=== PATIENT | male | born 1960 | race Caucasian/White ===

== ENCOUNTER 2017-09-10 21:13 | Inpatient (IN) | payer OTHER ==
[~2017-09-10] VITALS: Ht 170.2 cm; Wt 75.1 kg
[2017-09-10 22:25] VITALS: BP 134/93; PULSE 69; RESP 18; TEMP 98; O2SAT 98
[2017-09-10] MEDS ORDERED: LORazepam 1 MG TAB PO PRN (23:15)
[2017-09-10] MEDS ORDERED: LORazepam 2 MG TAB PO PRN (23:15)
[2017-09-10] MEDS ORDERED: FLUMAZENIL 0.5 MG/5 ML VIAL IV PUSH PRN (23:15)
[2017-09-10] MEDS ORDERED: LORazepam 2 MG/ML VIAL IV PUSH PRN ×4 (23:15)
[2017-09-11 06:18] VITALS: BP 135/78; PULSE 68; RESP 18; TEMP 97.4; O2SAT 96
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
== END 2017-09-11 17:15 | disposition home or self-care (01) | DRG 882 ==
LOC: H270 22:15
PROVIDERS: ADMIT Psychiatry & Neurology Psychiatry; ATTEND Psychiatry & Neurology Psychiatry
DX: F43.25 Adjustment disorder with mixed disturbance of emotions and conduct (principal); F10.20 Alcohol dependence, uncomplicated; F19.10 Other psychoactive substance abuse, uncomplicated; F17.210 Nicotine dependence, cigarettes, uncomplicated; Z59.0 Homelessness; Z63.8 Other specified problems related to primary support group

== ENCOUNTER 2017-09-15 19:38 | Emergency (ER) | payer SELFPAY ==
[~2017-09-15] VITALS: Ht 170.2 cm; Wt 80.0 kg
[2017-09-15 19:44] VITALS: BP 110/68; PULSE 95; RESP 18; TEMP 98.6; O2SAT 93
[2017-09-15] MEDS ORDERED: ceFAZolin 2 GM PREMIX 100 ML IV ONE (20:00)
[2017-09-15] MEDS ORDERED: DIPHTH/TETANUS/ACEL PERTUSSIS (BOOSTER) 0.5 ML VIAL/PFS IM ONE (20:00)
--- NOTE | 2017-09-15 20:04 | PD ---
HPI Chief Complaint: Fall Time Seen by Provider: 19:45 Travel History International Travel<30 days: No Contact w/Intl Traveler<30days: No Traveled to known affect area: No History of Present Illness HPI The patient is a 57 year old male who presents to the [facility] emergency department with a history of being found on the ground by bystanders with a decreased level of consciousness. The patient reportedly had a loss of consciousness related to hitting his head. The patient had an abrasion to the right side of his forehead. The patient on arrival is awake and alert. The patient has an odor of alcohol about him with some slurred speech. He reports that he normally drinks a case of beer today. So far he has had 2 beers. He is unsure how he ended up on the ground. The patient at this time reports having a headache, neck pain, back pain. The patient has a history of neuropathy and has chronic tingling sensations in his legs. He denies having any new weakness of his upper or lower extremities. He denies having any new tingling of his extremities. He denies having any chest pain, or chest pressure. He reports having some chronic dyspnea on exertion that is no worse than usual. He reports that he smokes 2 packs of cigarettes per day. He cannot recall when his tetanus was last updated. On review of systems otherwise , the patient denies having any known recent fevers, worsening cough or congestion, abdominal pain, vomiting, diarrhea, urinary symptoms, or other neurologic symptoms. [facility] Past Medical History Narrative Medical The patient's past medical history is significant for asthma/COPD, history of polysubstance abuse, history of daily alcohol abuse, tobacco abuse, history of coronary artery disease status post coronary artery bypass grafting, hypertension, seizure disorder, prior history of cerebrovascular accident. Arthritis: No Asthma: No Heart Rhythm Problems: No Cardiovascular Problems: No (denies) High Cholesterol: No Chest Pain: No Congestive Heart Failure: No COPD: Yes Cerebrovascular Accident: Yes Coronary Artery Disease: Yes Diminished Hearing: No Genitourinary: No Hypertension: Yes Musculoskeletal: Yes (neuropathy) Neurologic: No Psychiatric: No Reproductive: No Respiratory: Yes Seizures: Yes (last one was 1 month ago after drinking) Tetanus Vaccination: Unknown Past Surgical History Narrative Surgical The patient's past surgical history is significant for coronary artery bypass grafting of 2 vessels Abdominal Surgery: No Cardiac Surgery: No Coronary Artery Bypass Graft: Yes Ear Surgery: No Endocrine Surgery: No Eye Surgery: No Genitourinary Surgery: No Gynecologic Surgery: No Oral Surgery: No Thoracic Surgery: No Other Surgery: Yes (Rt hand, thumb reattached, Lf forearm josafat) Social History Alcohol Use: Yes (2 beers today, normally a case of beer daily) Tobacco Use: Yes (2 packs per day) Substance Use: No (denies) Allergies-Medications (Allergen,Severity, Reaction): Coded Allergies: No Known Allergies (Unverified , 09/15/17) Reported Meds & Prescriptions Reported Meds & Active Scripts Active No Active Prescriptions or Reported Medications Review of Systems Except as stated in HPI: all other systems reviewed are Neg General / Constitutional: No: Fever Eyes: No: Visual changes HENT: Positive: Headaches, Neck Pain, No: Neck Stiffness Cardiovascular: Positive: Dyspnea on exertion (Chronic dyspnea on exertion related to COPD), No: Chest Pain or Discomfort Respiratory: Positive: Cough (Chronic smoker's cough), No: Shortness of Breath Gastrointestinal: No: Nausea, Vomiting, Diarrhea, Abdominal Pain Genitourinary: No: Dysuria Musculoskeletal: No: Pain Skin: No Rash Neurologic: Positive: Headache, No: Weakness, Focal Abnormalities, Change in Mentation, Sensory Disturbance Psychiatric: No: Depression Endocrine: No: Polydipsia Hematologic/Lymphatic: No: Easy Bruising Physical Exam Narrative General: The patient is a well-developed well-nourished male, disheveled appearing on arrival, cervical collar in place. Head and Neck exam: Head is normocephalic, with evidence of trauma to the head, superficial abrasion with underlying small hematoma to the right side of the forehead just above the right eyebrow. No facial bone tenderness on palpation. No increased mobility to the facial bones with palpation. No crepitus or step-off. Eyes: EOMI, pupils are equal round and reactive to light. Nose: Midline septum with pink mucous membranes Mouth: Dentition unremarkable. Moist mucus membranes. Posterior oropharynx is not erythematous. No tonsillar hypertrophy. Uvula midline. Airway patent. Neck: The patient's trachea is midline. The patient has a cervical collar in place. Cardiovascular: Regular rate and rhythm without murmurs, gallops, or rubs. No pulse deficit to the extremities on simultaneous auscultation and palpation of his radial artery. Lungs: Clear to auscultation bilaterally. No wheezes, rhonchi, or rales. Abdomen: Soft, without tenderness to palpation in all 4 quadrants of the abdomen. No guarding, rebound, or rigidity. Normal bowel sounds are audible. No tenderness on palpation of McBurney's point. Negative Coe sign. Extremities: No clubbing, cyanosis, or edema. 2+ pulses in all 4 extremities. No calf tenderness on palpation. The patient has full range of motion of all extremities without any crepitus or pain with range of motion. The patient has no shortening of his extremities. The patient has no pain with internal or external rotation of his shoulders or hips. Back: No spinous process tenderness to palpation. No step-off or crepitus. No erythema or ecchymosis. No costovertebral angle tenderness to palpation. Neurologic Exam: Cranial nerves 2-12 were intact on exam. Strength is 5/5 in all 4 extremities. No sensory deficits noted. Skin Exam: No rash noted. Intact skin that is warm and dry. Data Data Last Documented VS Vital Signs Date Time Temp Pulse Resp B/P (MAP) Pulse Ox O2 Delivery O2 Flow Rate FiO2 09/15/17 19:49 94 Room Air 09/15/17 19:44 98.6 95 18 110/68 (82) Orders Orders Electrocardiogram (09/15/17 19:53) Complete Blood Count With Diff (09/15/17 19:53) Comprehensive Metabolic Panel (09/15/17 19:53) Creatine Kinase (Cpk) (09/15/17 19:53) Ckmb (Isoenzyme) Profile (09/15/17 19:53) Troponin I (09/15/17 19:53) B-Type Natriuretic Peptide (09/15/17 19:53) Prothrombin Time / Inr (Pt) (09/15/17 19:53) Act Partial Throm Time (Ptt) (09/15/17 19:53) Lipase (09/15/17 19:53) Urinalysis - C+S If Indicated (09/15/17 19:53) Magnesium (Mg) (09/15/17 19:53) Chest, Single Ap (09/15/17 19:53) Ct Brain W/O Iv Contrast(Rout) (09/15/17 19:53) Iv Access Insert/Monitor (09/15/17 19:53) Ecg Monitoring (09/15/17 19:53) Oximetry (09/15/17 19:53) Drug Screen, Random Urine (09/15/17 19:53) Alcohol (Ethanol) (09/15/17 19:53) Ct Cerv Spine W/O Contrast (09/15/17 ) Pelvis, Ap Only (Routine) (09/15/17 19:53) Cefazolin 2 Gm Premix (Ancef 2 Gm Premix (09/15/17 20:00) Vxjf-Brh-Pxacjq (Booster) Inj (Boostrix (09/15/17 20:00) Ct Thor Spine W/O Contrast (09/15/17 19:53) Ct Lumb Spine W/O Contrast (09/15/17 19:53) Sodium Chlor 0.9% 1000 Ml Inj (Ns 1000 M (09/15/17 21:00) Splint Or Brace Apply/Monitor (09/15/17 21:18) Clavicle (09/15/17 22:05) Labs Laboratory Tests Test 09/15/17 20:20 White Blood Count 8.9 TH/MM3 Red Blood Count 4.40 MIL/MM3 Hemoglobin 15.1 GM/DL Hematocrit 43.7 % Mean Corpuscular Volume 99.2 FL Mean Corpuscular Hemoglobin 34.2 PG Mean Corpuscular Hemoglobin Concent 34.5 % Red Cell Distribution Width 14.0 % Platelet Count 240 TH/MM3 Mean Platelet Volume 8.6 FL Neutrophils (%) (Auto) 60.1 % Lymphocytes (%) (Auto) 27.0 % Monocytes (%) (Auto) 10.5 % Eosinophils (%) (Auto) 1.9 % Basophils (%) (Auto) 0.5 % Neutrophils # (Auto) 5.4 TH/MM3 Lymphocytes # (Auto) 2.4 TH/MM3 Monocytes # (Auto) 0.9 TH/MM3 Eosinophils # (Auto) 0.2 TH/MM3 Basophils # (Auto) 0.0 TH/MM3 CBC Comment DIFF FINAL Differential Comment Prothrombin Time 9.7 SEC Prothromb Time International Ratio 1.0 RATIO Activated Partial Thromboplast Time 24.7 SEC Blood Urea Nitrogen 7 MG/DL Creatinine 0.77 MG/DL Random Glucose 108 MG/DL Total Protein 7.2 GM/DL Albumin 2.9 GM/DL Calcium Level 8.7 MG/DL Magnesium Level 2.4 MG/DL Alkaline Phosphatase 115 U/L Aspartate Amino Transf (AST/SGOT) 99 U/L Alanine Aminotransferase (ALT/SGPT) 186 U/L Total Bilirubin 0.4 MG/DL Sodium Level 143 MEQ/L Potassium Level 3.7 MEQ/L Chloride Level 111 MEQ/L Carbon Dioxide Level 19.1 MEQ/L Anion Gap 13 MEQ/L Estimat Glomerular Filtration Rate 104 ML/MIN Total Creatine Kinase 35 U/L Troponin I LESS THAN 0.02 NG/ML B-Type Natriuretic Peptide 26 PG/ML Lipase 284 U/L Ethyl Alcohol Level 244 MG/DL MDM Medical Decision Making Medical Screen Exam Complete: Yes Emergency Medical Condition: Yes Medical Record Reviewed: Yes Differential Diagnosis Intracranial trauma, versus cervical spine trauma, versus syncopal event, versus cardiac arrhythmia, versus seizure activity, versus alcohol intoxication Narrative Course During the course of the patient's emergency department visit, the patient's history, examination, and differential diagnosis were reviewed with the patient. The patient was placed on a pvc monitor with oximetry and frequent blood pressure monitoring. The patient had IV access obtained and blood work sent for analysis. The patient had an EKG done on arrival that shows a sinus rhythm heart rate of [address] segment elevation is noted. The patient was initially provided Ancef 2 g IV, and update to his tetanus, normal saline IV fluids The patient's laboratory studies were reviewed and remarkable for a white count of 8.9, hemoglobin 15.1, platelets 240, monocytes 10.5, CMP is remarkable for chloride 111, CO2 19.1, glucose 108, AST 99, ALT 180, cardiac enzymes within normal limits, lipase 284, PT 9.7, PTT 24.7, alcohol level is 244 Radiology studies were reviewed and remarkable for Last Impressions Clavicle X-Ray 09/15/172204 Signed Impressions: CONCLUSION: Remote-appearing clavicular fracture. Thoracic Spine CT 09/15/171952 Signed Impressions: CONCLUSION: 1. Degenerative changes of the spine are noted without evidence for acute frac ture or listhesis. 2. Remote right mid clavicular fracture. Pelvis X-Ray 09/15/171952 Signed Impressions: CONCLUSION: No acute findings. Lumbar Spine CT 09/15/171952 Signed Impressions: CONCLUSION: 1. Degenerative changes are noted. No fracture or listhesis. Head CT 09/15/171952 Signed Impressions: CONCLUSION: 1. Atrophy. Chest X-Ray 09/15/171952 Signed Impressions: CONCLUSION: Clear lungs. Right clavicular fracture, age indeterminate however concerning fo r acute fracture. Cervical Spine CT 09/15/17 0000 Signed Impressions: CONCLUSION: 1. Degenerative changes are noted without evidence for acute fracture or listh esis. The patient cervical collar will be removed. The patient will be observed in the emergency department for improvement in his mentation and ability to walk without assistance given his acute alcohol intoxication. Initially the patient was placed in a sling regarding a possible new clavicle fracture, however this appeared to be an old clavicle fracture on additional imaging. The patient is encouraged to decrease his alcohol intake. The patient is resting comfortably and feels better, is alert and in no distress. The patient's results and examination findings were discussed with the patient. The repeat examination is unremarkable and benign. The history, exam, diagnostic testing, and current condition do not suggest any significant pathology to warrant further testing, continued ED treatment, admission, or surgical evaluation at this point. The vital signs have been stable. The patient does not have uncontrollable pain, intractable vomiting, or other significant symptoms. The patient's condition is stable and appropriate for discharge. The patient will pursue further outpatient evaluation with a primary care physician or other designated or consulting physician as indicated in the discharge instructions. The patient is instructed to report back to the emergency department immediately for reexamination in the mean time if he develops any new or worsening signs or symptoms. The patient expressed understanding and was agreeable with this plan. Diagnosis Primary Impression: Head injury Qualified Codes: S09.90XA - Unspecified injury of head, initial encounter Additional Impressions: Abrasion Alcohol intoxication Qualified Codes: F10.929 - Alcohol use, unspecified with intoxication, unspecified Referrals: [facility] 2 days Primary Care Physician 2 days Patient Instructions: Abrasion (ED), General Instructions, Head Injury (ED) Additional Instructions: The patient is instructed to ice any areas of swelling or discomfort. The patient is not encouraged to decrease his alcohol intake. Med/Other Pt SpecificInfo: No Change to Meds Scripts No Active Prescriptions or Reported Meds Disposition: 01 DISCHARGE HOME Condition: Stable Margot Lion MD Sep 15, 2017 20:04
--- NOTE | 2017-09-15 20:25 | RADRPT ---
EXAM DATE: 09/15/2017 8:23 PM EDT AGE/SEX: 57 years / Male INDICATIONS: Fall. Pelvic pain. CLINICAL DATA: This is the patient's initial encounter. Patient reports that signs and symptoms have been present for 1 day and indicates a pain score of 5/10. MEDICAL/SURGICAL HISTORY: None. None. COMPARISON: No prior [place] exams available for comparison. FINDINGS: Examination of the pelvis demonstrates no evidence of fracture or dislocation. Bony mineralization i s normal. There is no widening of the sacroiliac joints. No foreign body is identified. CONCLUSION: No acute findings. Electronically signed by: Stanley Venegas MD 09/15/2017 8:24 PM EDT
--- NOTE | 2017-09-15 20:25 | RADRPT ---
EXAM DATE: 09/15/2017 8:21 PM EDT AGE/SEX: 57 years / Male INDICATIONS: Fall. Right side chest pain. CLINICAL DATA: This is the patient's initial encounter. Patient reports that signs and symptoms have been present for 1 day and indicates a pain score of 4/10. MEDICAL/SURGICAL HISTORY: None. None. COMPARISON: No prior [facility] exams available for comparison. FINDINGS: The lungs are clear. There is a deformity of the right distal clavicle suspect for an acute fracture however evaluated on this study. This is secondary to overlying artifact. Heart size normal. CONCLUSION: Clear lungs. Right clavicular fracture, age indeterminate however concerning for acute fracture. Electronically signed by: Stanley Venegas MD 09/15/2017 8:24 PM EDT
[2017-09-15 20:28] LABS: AUTOMATED NEUTROPHIL # 5.4 TH/MM3 (1.8-7.7); BASOPHIL % 0.5 % (0.0-2.0); EOSINOPHIL # 0.2 TH/MM3 (0-0.4); EOSINOPHIL % 1.9 % (0.0-4.0); HEMATOCRIT 43.7 % (39.0-51.0); HEMOGLOBIN 15.1 GM/DL (13.0-17.0); LYMPHOCYTE # 2.4 TH/MM3 (1.0-4.8); MEAN CELL VOLUME 99.2 FL (80.0-100.0); MEAN CORPUSCULAR HEMOGLOBIN 34.2 PG (27.0-34.0); MEAN CORPUSCULAR HGB CONC 34.5 % (32.0-36.0); MEAN PLATELET VOLUME 8.6 FL (7.0-11.0); MONO % 10.5 % (0.0-8.0); MONOCYTE # 0.9 TH/MM3 (0-0.9); NEUT % 60.1 % (16.0-70.0); PLATELET COUNT 240 TH/MM3 (150-450); WHITE BLOOD COUNT 8.9 TH/MM3 (4.0-11.0)
[2017-09-15 20:40] LABS: ALBUMIN 2.9 GM/DL (3.4-5.0); AST (GOT) 99 U/L (15-37); BICARBONATE 19.1 MEQ/L (21.0-32.0); BLOOD UREA NITROGEN 7 MG/DL (7-18); CALCIUM 8.7 MG/DL (8.5-10.1); CHLORIDE 111 MEQ/L (98-107); CREATININE 0.77 MG/DL (0.60-1.30); GLOMERULAR FILTRATION RATE 104 ML/MIN (>89); GLUCOSE,RANDOM 108 MG/DL (74-106); MAGNESIUM 2.4 MG/DL (1.5-2.5); SODIUM (NA) 143 MEQ/L (136-145)
[2017-09-15 20:41] LABS: ALT (GPT) 186 U/L (12-78)
[2017-09-15 20:42] LABS: PROTHROMBIN TIME - PATIENT 9.7 SEC (9.8-11.6)
[2017-09-15 20:44] LABS: ALKALINE PHOSPHATASE 115 U/L (45-117); TOTAL BILIRUBIN ADULT 0.4 MG/DL (0.2-1.0); TOTAL PROTEIN 7.2 GM/DL (6.4-8.2); TROPONIN I LESS THAN 0.02 NG/ML (0.02-0.05)
[2017-09-15] MEDS ORDERED: SODIUM CHLOR 0.9% 1000 ML INJ 1,000 ML IV SCH (21:00)
--- NOTE | 2017-09-15 22:32 | RADRPT ---
EXAM DATE: 09/15/2017 10:28 PM EDT AGE/SEX: 57 years / Male INDICATIONS: Right clavicle pain after fall. CLINICAL DATA: This is the patient's initial encounter. Patient reports that signs and symptoms have been present for 1 day and indicates a pain score of 7/10. MEDICAL/SURGICAL HISTORY: None. None. COMPARISON: [facility] [place] SING[place], 09/15/2017. . FINDINGS: There is a fracture deformity of the right midclavicle which is nonacute in appearance. Mild hypertro phic changes of the acromioclavicular joint are noted. No acute fracture or dislocation. CONCLUSION: Remote-appearing clavicular fracture. Electronically signed by: Stanley Venegas MD 09/15/2017 10:31 PM EDT
--- NOTE | 2017-09-15 22:35 | RADRPT ---
EXAM DATE: 09/15/2017 10:28 PM EDT AGE/SEX: 57 years / Male INDICATIONS: Patient fell off a bench, landing on his head. ETOH. CLINICAL DATA: This is the patient's initial encounter. Patient reports that signs and symptoms have been present for 1 day and indicates a pain score of 0/10. MEDICAL/SURGICAL HISTORY: Stroke. Hypertension. Cardiovascular disease. Seizures. None. RADIATION DOSE: 16.62 CTDI (mGy) ; Combined studies COMPARISON: No prior [facility] exams available for comparison. TECHNIQUE: Contiguous axial images were acquired using a multirow detector CT scanner without contra st. Multiplanar reconstruction in the sagittal and coronal planes was performed. Using automated exp osure control and adjustment of the mA and/or kV according to patient size, radiation dose was kept a s low as reasonably achievable to obtain optimal diagnostic quality images. FINDINGS: Normal alignment of the thoracic spine. Mild multilevel osteophyte formation is identified. There are no compression deformities. There is a remote fracture of the right clavicle present. There is a angela tral disc protrusion focally effacing the ventral thecal sac at T6-7. Focal central disc protrusion a t T7-8 suspected without canal narrowing. Tiny central disc protrusion at T8-9. CONCLUSION: 1. Degenerative changes of the spine are noted without evidence for acute fracture or listhesis. 2. Remote right mid clavicular fracture. Electronically signed by: Stanley Venegas MD 09/15/2017 10:33 PM EDT
--- NOTE | 2017-09-15 22:36 | RADRPT ---
EXAM DATE: 09/15/2017 10:32 PM EDT AGE/SEX: 57 years / Male INDICATIONS: Patient fell off a bench, landing on his head. ETOH. CLINICAL DATA: This is the patient's initial encounter. Patient reports that signs and symptoms have been present for 1 day and indicates a pain score of 0/10. MEDICAL/SURGICAL HISTORY: Stroke. Hypertension. Cardiovascular disease. Seizures. None. RADIATION DOSE: 20.70 CTDI (mGy) COMPARISON: No prior [place] exams available for comparison. TECHNIQUE: Contiguous axial images were obtained using helical multirow detector technique. The vol umetric data was post-processed with multiplanar reconstruction in oblique axial, sagittal, and coron al planes. Using automated exposure control and adjustment of the mA and/or kV according to patient s ize, radiation dose was kept as low as reasonably achievable to obtain optimal diagnostic quality lenny ges. FINDINGS: Alignment is normal. No prevertebral soft tissue swelling or compression deformity. Moderate to sever e disc space narrowing at C5-6 and C6-7 with anterior osteophyte formation noted. Cervicothoracic ernestina ction is approximated. The odontoid process is intact. There are scattered disc bulges with mild tj l narrowing at C6-7, moderate canal stenosis at C5-6, mild canal narrowing at C4-5 or noted. CONCLUSION: 1. Degenerative changes are noted without evidence for acute fracture or listhesis. Electronically signed by: Stanley Venegas MD 09/15/2017 10:35 PM EDT
--- NOTE | 2017-09-15 22:38 | RADRPT ---
EXAM DATE: 09/15/2017 10:28 PM EDT AGE/SEX: 57 years / Male INDICATIONS: Patient fell off a bench, landing on his head. ETOH. CLINICAL DATA: This is the patient's initial encounter. Patient reports that signs and symptoms have been present for 1 day and indicates a pain score of 0/10. MEDICAL/SURGICAL HISTORY: Stroke. Cardiovascular disease. Hypertension. Seizures. None. RADIATION DOSE: 16.62 CTDI (mGy) ; Combined studies COMPARISON: No prior [place] exams available for comparison. TECHNIQUE: Contiguous axial images were acquired with a multirow detector CT scanner without contras t. Multiplanar reconstructions in the sagittal and coronal plane were also performed. Using automate d exposure control and adjustment of the mA and/or kV according to patient size, radiation dose was k ept as low as reasonably achievable to obtain optimal diagnostic quality images. FINDINGS: Alignment is normal. Multilevel osteophyte formation is seen. Disc space heights are preserved. No co mpression deformities. Atherosclerotic calcification of the aorta and iliac vessels are noted. A diff use disc bulge at L4-5 results in moderate to severe canal stenosis. Otherwise there is no canal narr owing. CONCLUSION: 1. Degenerative changes are noted. No fracture or listhesis. Electronically signed by: Stanley Venegas MD 09/15/2017 10:37 PM EDT
--- NOTE | 2017-09-15 22:41 | RADRPT ---
EXAM DATE: 09/15/2017 10:32 PM EDT AGE/SEX: 57 years / Male INDICATIONS: Patient fell off a bench, landing on his head. ETOH. CLINICAL DATA: This is the patient's initial encounter. Patient reports that signs and symptoms have been present for 1 day and indicates a pain score of 0/10. MEDICAL/SURGICAL HISTORY: Stroke. Hypertension. Cardiovascular disease. Seizures. None. RADIATION DOSE: 56.35 CTDI (mGy) COMPARISON: No prior [facility] exams available for comparison. TECHNIQUE: CT of the head without contrast. Using automated exposure control and adjustment of the mA and/or kV according to patient size, radiation dose was kept as low as reasonably achievable to ob tain optimal diagnostic quality images. FINDINGS: There is mild atrophy. No signs of acute infarct or intracranial hemorrhage. There is a remote lacuna r infarct within the sally. No fractures are seen. CONCLUSION: 1. Atrophy. Electronically signed by: Stanley Venegas MD 09/15/2017 10:39 PM EDT
[2017-09-15 22:44] VITALS: BP 119/67; PULSE 80; RESP 18; O2SAT 94
[2017-09-16 04:36] VITALS: BP 132/63
--- NOTE | 2017-09-16 19:10 | EKG ---
Date Performed: 09/15/2017 Time Performed: 19:53:02 PTAGE: 57 years EKG: Sinus rhythm NORMAL ECG NO PREVIOUS TRACING DOCTOR: Nika Varner Interpretating Date/Time 09/16/2017 19:08:32
== END 2017-09-16 04:48 | disposition home or self-care (01) ==
LOC: NEPC 19:38
DX: S00.81XA Abrasion of other part of head, initial encounter (principal); W22.8XXA Striking against or struck by other objects, initial encounter; F10.129 Alcohol abuse with intoxication, unspecified; Y90.8 Blood alcohol level of 240 mg/100 ml or more; M54.2 Cervicalgia; M54.9 Dorsalgia, unspecified; I10 Essential (primary) hypertension; F17.210 Nicotine dependence, cigarettes, uncomplicated; Z23 Encounter for immunization
CPT/HCPCS: 70450; 71045; 72125; 72128; 72131; 72170; 73000; 80053; 80307; 82550; 83690; 83735; 83880; 84484; 85025; 85610; 85730; 90471; 90715; 93005; 96374; 99285; J0690; J7030

== ENCOUNTER 2017-10-02 19:48 | Emergency (ER) | payer SELFPAY ==
[~2017-10-02] VITALS: Ht 170.2 cm; Wt 77.3 kg
[2017-10-02] MEDS ORDERED: BECL0.07 INH (21:01)
[2017-10-02] MEDS ORDERED: GABA300C5 PO (21:01)
[2017-10-02] MEDS ORDERED: ALBU6.7H INH (21:01)
--- NOTE | 2017-10-02 21:08 | PD ---
HPI Chief Complaint: Alcohol/Drug Intoxication Time Seen by Provider: 20:51 Travel History International Travel<30 days: No Contact w/Intl Traveler<30days: No Traveled to known affect area: No History of Present Illness HPI 57-year-old white male chronic alcoholic who recently came to [place] from [place] this past month. This is third visit to the ER. He complains of not feeling well. He has chronic neuropathy in his feet. He does continue to smoke and drink. He has chronic COPD. He is out of his medications. He denies any toxic ingestions. He has not had any fever chills. He has chronic cough and shortness of breath. No nausea vomiting. No urinary symptoms. Denies any focal weakness. He does complain of chronic pain in his lower legs and difficulty ambulating. Symptoms are mild to moderate. Worse with activity. Exacerbated by alcohol. No alleviating factors. PFSH Past Medical History Arthritis: No Asthma: No Heart Rhythm Problems: No High Cholesterol: No Chest Pain: No Congestive Heart Failure: No COPD: Yes Cerebrovascular Accident: Yes Coronary Artery Disease: Yes Diminished Hearing: No Genitourinary: No Hypertension: Yes Musculoskeletal: Yes (neuropathy) Neurologic: No Psychiatric: No Reproductive: No Respiratory: Yes Seizures: Yes (last one was 1 month ago after drinking) Influenza Vaccination: No Past Surgical History Abdominal Surgery: No Cardiac Surgery: No Coronary Artery Bypass Graft: Yes Ear Surgery: No Endocrine Surgery: No Eye Surgery: No Genitourinary Surgery: No Gynecologic Surgery: No Oral Surgery: No Thoracic Surgery: No Other Surgery: Yes (Rt hand, thumb reattached, Lf forearm josafat) Social History Alcohol Use: Yes (2 beers today, normally a case of beer daily) Tobacco Use: Yes (2 packs per day) Substance Use: No (denies) Allergies-Medications (Allergen,Severity, Reaction): Coded Allergies: No Known Allergies (Unverified , 10/02/17) Reported Meds & Prescriptions Reported Meds & Active Scripts Active Gabapentin 300 Mg Cap 300 Mg PO TID Proventil Hfa 6.7 GM Inh (Albuterol Sulfate) 90 Mcg/Act Aer 2 Puff INH Q6H PRN Qvar Inh (Beclomethasone Dipropionate) 40 Mcg/Act Aero 2 Puff INH BID Review of Systems Except as stated in HPI: all other systems reviewed are Neg Physical Exam Narrative GENERAL: Well-developed, well-nourished in no apparent distress. Nontoxic appearing. Patient is up and ambulatory in the ER. HEAD: Normocephalic, atraumatic. EYES: Pupils equal round and reactive. Extraocular motions intact. No scleral icterus. No injection or drainage. ENT: Nose clear. Throat without erythema, tonsillar hypertrophy or exudate. Uvula midline. Airway patent. NECK: Trachea midline. Supple, nontender, moves head freely. No central bony tenderness or spasm. CARDIOVASCULAR: Regular rate and rhythm without murmurs, gallops, or rubs. RESPIRATORY: Expiratory wheezes. No rales or rhonchi. GASTROINTESTINAL: Abdomen soft, non-tender, nondistended. No hepato-splenomegaly , or palpable masses. No guarding. EXTREMITIES: No clubbing, cyanosis, or edema. No joint tenderness. BACK: Nontender without deformity. No flank tenderness. NEUROLOGICAL: Awake, alert and oriented x 3 .Cranial nerves grossly intact. Motor and sensory grossly within normal limits. Normal speech. Data Data Orders Orders Ed Discharge Order (10/02/17 20:59) [facility] Medical Decision Making Medical Screen Exam Complete: Yes Emergency Medical Condition: Yes Medical Record Reviewed: Yes Differential Diagnosis Differential diagnosis: Electrolyte abnormality, asthma, COPD, alcoholism, neuropathy, seizure disorder, malingering Narrative Course The patient's exam today is reassuring. The patient will be given prescriptions for his Qvar, albuterol, and gabapentin. He is instructed to follow-up with a primary care doctor. There is no indication for any laboratory testing today. I reviewed his laboratory tests from his last evaluation earlier this past week. I am concerned that the patient has chronic alcohol abuse and his neuropathy is secondary to this. He also has a problem with homelessness. Diagnosis Primary Impression: Alcoholic peripheral neuropathy Additional Impressions: Homelessness COPD Patient Instructions: General Instructions Additional Instructions: Rest. Stop smoking. Limit alcohol consumption. Follow-up with the [facility]. Medications as directed. Med/Other Pt SpecificInfo: Prescription(s) given Scripts Gabapentin (Gabapentin) 300 Mg Cap 300 MG PO TID, #30 CAP 0 Refills Prov: Janneth Cervantes MD 10/02/17 Albuterol 6.7 GM Inh (Proventil Hfa 6.7 GM Inh) 90 Mcg/Act Aer 2 PUFF INH Q6H Y for SHORTNESS OF BREATH, #1 INHALER 0 Refills Prov: Janneth Cervantes MD 10/02/17 Beclomethasone Inh (Qvar Inh) 40 Mcg/Act Aero 2 PUFF INH BID for Asthma Management, #1 INHALER 0 Refills Prov: Janneth Cervantes MD 10/02/17 Disposition: 01 DISCHARGE HOME Condition: Stable Wilfredo Conley Oct 02, 2017 21:08
== END 2017-10-02 21:21 | disposition home or self-care (01) ==
LOC: NEPD 19:48
DX: G62.1 Alcoholic polyneuropathy (principal); F10.20 Alcohol dependence, uncomplicated; J44.9 Chronic obstructive pulmonary disease, unspecified; F17.210 Nicotine dependence, cigarettes, uncomplicated
CPT/HCPCS: 99283